=== PATIENT | female | born 1965 | race Caucasian/White ===

== ENCOUNTER 2021-06-21 20:55 | Emergency (ER) | payer MEDICAID ==
[~2021-06-21] VITALS: Ht 162.6 cm; Wt 64.9 kg
[2021-06-21] MEDS ORDERED: METH10TA80 PO (22:08)
[2021-06-21] MEDS ORDERED: METF-440 PO (22:08)
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
--- NOTE | 2021-06-21 23:45 | NUR ---
LAB AT BEDSIDE.
[2021-06-21 23:52] LABS: HEMATOCRIT 44.6 % (31.2-41.9); MEAN CORPUSCULAR HEMOGLOBIN 30.2 uug (24.7-32.8); MEAN CORPUSCULAR VOLUME 88.4 fL (75.5-95.3); PLATELET COUNT (AUTO) 390 K/uL (179-408)
[2021-06-22 00:03] LABS: CREATININE 0.7 mg/dL (0.6-1.3)
[2021-06-22 00:09] LABS: BILIRUBIN,TOTAL 0.2 mg/dL (0.2-1.0); TOTAL PROTEIN, SERUM 8.2 g/dL (6.4-8.2)
--- NOTE | 2021-06-22 01:04 | NUR ---
US AT BEDSIDE.
--- NOTE | 2021-06-22 02:05 | NUR ---
Patient discharged to home in stable condition. Steady gait. Written and verbal after care instructions given. Patient verbalizes understanding of instructions. Stressed follow up or return to ER for worsening s/s. Denies any pain/discomfort upon discharge.
[2021-06-22 02:06] VITALS: BP 140/81
== END 2021-06-22 02:06 | disposition home or self-care (01) ==
LOC: ER 20:55
DX: S80.11XA Contusion of right lower leg, initial encounter (principal); X58.XXXA Exposure to other specified factors, initial encounter; Y92.89 Other specified places as the place of occurrence of the external cause; E03.9 Hypothyroidism, unspecified; E11.9 Type 2 diabetes mellitus without complications; Z79.84 Long term (current) use of oral hypoglycemic drugs; R03.0 Elevated blood-pressure reading, without diagnosis of hypertension
CPT/HCPCS: 36415; 85025; 85610